=== PATIENT | female | born 1960 | race Caucasian/White ===

== ENCOUNTER → 2016-11-27 | Outpatient (CLI) | payer BC ==
--- NOTE | 2016-11-27 09:15 | US ---
Ultrasound Thyroid History: Follow up thyroid nodule. E04.1. Comparison: Ultrasound November 2015. Technique: Longitudinal and transverse ultrasound imaging of the thyroid gland. Findings: Right lobe of the thyroid measures 5.3 x 1.3 x 1.6 cm. Left lobe of the thyroid measures 5. 1 x 1.4 x 1.4 cm. Isthmic thickness is 0.4 cm. In the left lobe of the thyroid mid pole region, there is a 1 x 0.8 x 0.7 cm nodule that previously m easured 0.9 x 0.9 x 0.7 cm. A few benign-appearing anterior cervical lymph nodes without abnormal adenopathy. Impression: No significant change in size of solitary left thyroid nodule measuring 1 x 0.8 x 0.7 cm.
== END ==
LOC: FIMAGING 08:05
PROVIDERS: ATTEND Family Medicine
DX: E04.1 Nontoxic single thyroid nodule (principal)

== ENCOUNTER → 2017-03-26 | Outpatient (CLI) | payer BC | LOC: FIMAGING 07:50 | DX: Z12.31 Encounter for screening mammogram for malignant neoplasm of breast (principal); Z80.3 Family history of malignant neoplasm of breast | CPT/HCPCS: G0202 ==

== ENCOUNTER → 2017-09-24 | Outpatient (CLI) | payer BC ==
[~2017-09-24] MED LIST: GADOBUTROL 10 ML VIAL IVP ONE
== END ==
LOC: FIMAGING 07:07
PROVIDERS: ATTEND Internal Medicine Hematology & Oncology
DX: Z12.31 Encounter for screening mammogram for malignant neoplasm of breast (principal)
CPT/HCPCS: 0159T; 77059; A9585; C8908

== ENCOUNTER → 2018-03-27 | Outpatient (CLI) | payer BC | LOC: FIMAGING 08:12 | PROVIDERS: ATTEND Internal Medicine Hematology & Oncology | DX: Z12.31 Encounter for screening mammogram for malignant neoplasm of breast (principal); Z80.3 Family history of malignant neoplasm of breast ==

== ENCOUNTER → 2018-04-14 | Outpatient (CLI) | payer BC | LOC: FIMAGING 09:32 | PROVIDERS: ATTEND Family Medicine | DX: R92.8 Other abnormal and inconclusive findings on diagnostic imaging of breast (principal) ==

== ENCOUNTER → 2019-02-24 | Outpatient (CLI) | payer BC | LOC: FIMAGING 10:33 | PROVIDERS: ATTEND Internal Medicine Rheumatology | DX: Z13.820 Encounter for screening for osteoporosis (principal); M81.0 Age-related osteoporosis without current pathological fracture; Z78.0 Asymptomatic menopausal state; Z82.62 Family history of osteoporosis ==

== ENCOUNTER → 2019-04-13 | Outpatient (CLI) | payer BC | LOC: FIMAGING 07:30 ==

== ENCOUNTER 2019-04-29 02:09 | Observation (INO) | payer BC | END 2019-04-29 17:43 | disposition home or self-care (01) | LOC: F2W 05:57 ==